=== PATIENT | male | born 2000 | race Caucasian/White ===

== ENCOUNTER 2022-09-03 15:40 | Outpatient (CLI) | payer OTHER, SELFPAY ==
--- NOTE | 2022-09-03 16:00 | MR_ITS ---
WS: [id number] MRI RIGHT KNEE NONCONTRAST TECHNIQUE: Axial PD, coronal PD fat sat, coronal PD, sagittal PD, and sagittal PD fat-sat images obta ined. CLINICAL INFORMATION: S83.8X1A - Sprain of other specified parts of right knee,... COMPARISON: Outside CT July 20, 2022. Report not available. FINDINGS: Distal quadriceps and patella tendons are intact. Hypertrophic patella. Small suprapatellar effusion. Normal medial and lateral meniscus. No acute appearing meniscal tears. Diffuse edema with partial tear involving the medial patellar retinaculum with fluid and edema at the MCL origin. Distal MCL appears intact. Normal patella cartilage. Diffuse edema involving the femoral condyle at the MCL origin likely due to contusion. Diffuse edema involving the lateral femoral condyle with contusion and nondisplaced fracture from recent trauma. Associated cortical irregularity. This involves the LCL origin. LCL and popliteus appear intact. Normal popliteal fossa. Posterior intercondylar tibial avulsion fracture with small intra-articular fragment better seen on t he prior CT. This is just medial to the tibial component PCL on the CT. MR/MR knee RT wo con* [id number] IMPRESSION: 1. ACL and PCL appear intact. 2. Medial and lateral meniscus appear intact. 3. Diffuse contusion with nondisplaced fracture involving the lateral femoral condyle at the LCL origin. Lateral collateral ligament and popliteus appear int act. 4. Diffuse contusion involving the medial femoral condyle at the MCL origin wi th diffuse edema along the medial patellar retinaculum. Recommend correlation f or patellar instability. 5. Partial tear involving the proximal MCL. Distal MCL appears intact. 6. Intercondylar avulsion fracture along the posterior tibia better seen on th e prior CT. 7. No edema in the patella. Normal patella cartilage. 8. Small suprapatellar effusion. Outbridge grading: grade II: blister-like swelling/fraying of articular cartila ge extending to surface
== END 2022-09-03 15:41 | disposition home or self-care (01) ==
LOC: RAD 15:48
PROVIDERS: PCP Nurse Practitioner Family; Visit Provider Student in an Organized Health Care Education/Training Program
DX: S83.411A Sprain of medial collateral ligament of right knee, initial encounter (principal); S72.424A Nondisplaced fracture of lateral condyle of right femur, initial encounter for closed fracture; S82.111A Displaced fracture of right tibial spine, initial encounter for closed fracture; X58.XXXA Exposure to other specified factors, initial encounter; M25.461 Effusion, right knee
CPT/HCPCS: 73721

== ENCOUNTER → 2024-03-30 09:44 | Outpatient (BNVA) | payer OTHER, SELFPAY | PROVIDERS: PCP Nurse Practitioner Family; Visit Provider Nurse Practitioner Family | DX: E78.5 Hyperlipidemia, unspecified (principal); J06.9 Acute upper respiratory infection, unspecified; I10 Essential (primary) hypertension; R53.83 Other fatigue | CPT/HCPCS: 80053; 80061; 85025 ==

== ENCOUNTER → 2024-07-31 10:03 | Outpatient (BNVA) | payer OTHER, SELFPAY | PROVIDERS: PCP Nurse Practitioner Family; Visit Provider Nurse Practitioner Family | DX: D58.2 Other hemoglobinopathies (principal) | CPT/HCPCS: 85025 ==

== ENCOUNTER 2024-08-14 09:50 | Outpatient (CLI) | payer OTHER, SELFPAY ==
--- NOTE | 2024-08-14 10:00 | US_ITS ---
WS: [id number] ULTRASOUND SOFT TISSUES LEFT cervical neck. HISTORY: R59.1 - Generalized enlarged lymph nodes COMPARISON: None available. TECHNIQUE: 2-D and color Doppler imaging is submitted. Small LEFT cervical chain lymph nodes are identified. No adenopathy. US/US soft tissue head neck [id number] IMPRESSION: No LEFT cervical chain adenopathy.
== END 2024-08-14 09:51 | disposition home or self-care (01) ==
PROVIDERS: PCP Nurse Practitioner Family; Visit Provider Nurse Practitioner Family
DX: R59.1 Generalized enlarged lymph nodes (principal)
CPT/HCPCS: 76536